=== PATIENT | female | born 1940 | race Asian ===

== ENCOUNTER 2018-07-27 22:10 | Inpatient (IN) | payer OTHER ==
[~2018-07-27] VITALS: Ht 154.9 cm; Wt 56.0 kg
[2018-07-27 22:16] VITALS: Ht 154.9 cm; Wt 56.0 kg
--- NOTE | 2018-07-27 22:28 | NUR ---
PT BIB [facility] FOR C/O DIZZINESS. PT WAS FOUND IN BEDROOM BY SON WITH SOME SLURRED SPEACH AND STATING SHE WAS FEELING DIZZY. PT DENIES ANY FALL. PT IS ABLE TO FOLLOW COMMANDS APPROPRIATELY. PT GRASPS ARE EVEN. PTS SMILE IS SYMETRIC. NO NEURO DEFICITS NOTED. PT HAS HX OF HTN, DM, AND AN ANGIOPLASTY THAT WAS DONE 8 YEARS AGO. PT WAS GIVEN ZOFRAN 4MG BY PARAMEDICS WHILE IN ROUTE. PTS BS WAS 100MG/dL. PT REPORTS HAVING A HEADACHE ONTOP OF HEAD. PT ALSO REPORTS A PAIN THAT IS ON HER UPPER LEFT BUTTOCK THAT RADIATES DOWN LEFT THIGH. PT IS LAYING IN ED GURNEY. PT IS A/O X4. PT RESPS ARE E/U. PT HAS SON AT BEDSIDE TO HELP WITH TRANSLATION. COMFORT MEASURES IN PLACE. MILD DISTRESS NOTED DUE TO HEADACHE.
--- NOTE | 2018-07-27 22:30 | NUR ---
MSE COMPLETED BY DR SKAGGS
--- NOTE | 2018-07-27 22:54 | NUR ---
PT IS BEING TAKEN TO CT SCAN VIA ED STEPHANIE BY TECH
[2018-07-27 22:59] LABS: BASOPHIL % 0.6 % (0-2); PLATELET COUNT 248 x10^3mcL (130-400)
--- NOTE | 2018-07-27 23:05 | NUR ---
PT RETURNED FROM CT WITH NO INCIDENCE
[2018-07-27 23:07] LABS: CARBON DIOXIDE 30.1 mmol/L (21-32); CHLORIDE SERUM 102 mmol/L (98-107); CREATININE SERUM 0.9 mg/dL (0.6-1.0); GLUCOSE SERUM 133 mg/dL (74-106); POTASSIUM SERUM 3.8 mmol/L (3.5-5.1); SODIUM SERUM 140 mmol/L (136-145)
--- NOTE | 2018-07-27 23:14 | NUR ---
PT LAYING IN ED STEPHANIE. PT IS UNABLE TO GIVE URINE SAMPLE AT THIS TIME. WILL CONTINUE TO ENCOURAGE
[2018-07-27 23:20] LABS: ALBUMIN 4.4 g/dL (3.4-5.0); ALKALINE PHOSPHATASE 94 U/L (46-116); ALT/SGPT 24 U/L (14-59); AST/SGOT 30 U/L (15-37); FREE T4 0.94 ng/dL (0.76-1.46)
[2018-07-27 23:22] LABS: TOTAL PROTEIN, SERUM 8.6 g/dL (6.4-8.2)
--- NOTE | 2018-07-27 23:38 | NUR ---
PT IS ABLE TO AMBULATE WITH STEADY GAIT TO THE RESTROOM TO GIVE URINE SAMPLE
--- NOTE | 2018-07-27 23:58 | NUR ---
DR SKAGGS AT BEDSIDE TO DISCUSS PLAN OF CARE WITH PT
[2018-07-28 00:11] LABS: UA SPECIFIC GRAVITY <=1.005 (1.005-1.035); microscopic required? YES; urine erythrocyte TRACE (NEGATIVE)
--- NOTE | 2018-07-28 00:30 | NUR ---
PT LAYING IN ED GURNEY WITH SON AT BEDSIDE. PT IS ASLEEP BUT EASILY AROUSABLE. PT RESPS ARE E/U. PT HAS COMFORT MEASURES IN PLACE. NO DISTRESS NOTED
--- NOTE | 2018-07-28 01:21 | NUR ---
GAVE PT REPORT TO LIBRA ANDINO TO RESUME PRIMARY CARE ONCE PT IS UP ON TELE FLOOR 217A
--- NOTE | 2018-07-28 01:46 | NUR ---
PT IS ABLE TO AMBULATE WITH STEADY GAIT TO RESTROOM WITH NO INCIDENCE
--- NOTE | 2018-07-28 02:01 | NUR ---
PT WHEELED OUT OF ED VIA ED GURNEY. PT ADMITTED TO TELE FLOOR 217A. PT WAS ESCORTED BY TITA ANDINO. NO INCIDENCE NOTED
[2018-07-28 02:09] LABS: CHOLESTEROL/HDL RATIO 4.1; MAGNESIUM 2.3 mg/dL (1.8-2.4); PHOSPHOROUS 4.1 mg/dL (2.5-4.9)
[2018-07-28 02:37] VITALS: BP 166/80
--- NOTE | 2018-07-28 02:53 | NUR ---
RECEIVED PT FROM ER VIA GURNEY ACCOMPANIED WITH NURSE AND PT'S SON, ALERT AND ORIENTED X 4 WITH CLEAR SPEECH AND CZECH SPEAKING ONLY, NO FACIAL DROOP NOTED, HAND SUBGRADE ROLLER OPERATOR ARE EQUAL, C/O OF DIZZINESS BUT DENIES HEADACHE, BREATHING EVEN AND UNLABORED, NO SOB, LUNG SOUNDS CLEAR, ON ROOM AIR WITH NO RESP DISTRESS NOTED, ON TELE#10 NSR WITH 1ST DEGREE AVB, DENIES CHEST PAIN, SL TO LH, PULSES PALPABLE, NO EDEMA NOTED, MILD GENERALIZED WEAKNESS, AMBULATORY WITH MINIMAL ASSIST, ABD SOFT AND FLAT WITH ACTIVE BS, NO BM AT THIS TIME, DENIES ABD PAIN, DENIES ANY PROBLEM WITH VOIDING, SON AT BEDSIDE, NO DISTRESS NOTED, WILL KEEP TO MONITOR.
[2018-07-28 05:35] VITALS: BP 118/60
--- NOTE | 2018-07-28 06:01 | NUR ---
PT ASLEEP BUT EASILY AROUSABLE, DENIES HEADACHE AT THIS TIME, C/O OF MILD DIZZINESS, ON TELE#10 NSR WITH 1ST DEGREE AVB, MORNING BLOOD SUGAR-103 MG/DL WITH NO RISS, NO DISTRESS NOTED, WILL KEEP TO MONITOR.
[2018-07-28 06:18] LABS: BASOPHIL % 0.6 % (0-2); PLATELET COUNT 234 x10^3mcL (130-400); RED CELL DISTRIBUTION WIDTH 13.2 % (11.5-14.5)
[2018-07-28 06:49] LABS: CALCIUM 8.5 mg/dL (8.5-10.1); CHLORIDE SERUM 105 mmol/L (98-107); CREATININE SERUM 0.8 mg/dL (0.6-1.0); GLUCOSE SERUM 107 mg/dL (74-106); PHOSPHOROUS 4.1 mg/dL (2.5-4.9); POTASSIUM SERUM 4.5 mmol/L (3.5-5.1); SODIUM SERUM 141 mmol/L (136-145)
--- NOTE | 2018-07-28 07:06 | NUR ---
BEDSIDE HANDOFF REPORT DONE WITH EVELYNRN, ALL QUESTIONS ANSWERED AND CONCERNS ADDRESSED.
--- NOTE | 2018-07-28 08:00 | NUR ---
RECEIVED PATIENT A/A/OX4; CLEAR KINYARWANDA SPEECH. TELE#10, SR W/ 1ST DEGREE AVB; HR = 69. DENIED CHEST PAIN.
[2018-07-28 10:06] VITALS: BP 120/66
[2018-07-28 13:33] VITALS: BP 114/61
[2018-07-28] MEDS ORDERED: MEMANTINE HCL E28 MG PO (14:58)
[2018-07-28] MEDS ORDERED: LOSARTAN POTASS25 M1 PO (14:59)
[2018-07-28] MEDS ORDERED: EXELON4.6 MG/21 PO (15:00)
[2018-07-28] MEDS ORDERED: TRADJENTA5 M1 PO (15:02)
[2018-07-28] MEDS ORDERED: ESTRACE0.5 MG PO (15:02)
[2018-07-28] MEDS ORDERED: BRILINTA90 M1 PO (15:03)
[2018-07-28 17:49] VITALS: BP 129/66
--- NOTE | 2018-07-28 18:56 | NUR ---
CONDITION STABLE. A/A/OX4. SPEECH CLEAR. IVHL'D TO L HAND. AMBULATED ON STEADY GAIT. TOLERATED DINNER. ENDORSED CARE TO [facility] NURSE.
--- NOTE | 2018-07-28 19:48 | NUR ---
SHIFT REASSESSMENT DONE.PATIENT ALERT AND ORIENTED.SPEAKING [place] ONLY,NEEDS ANTICIPATED.HEPLOCK L HAND INTACT.AMBULATORY,GEN WEAKNESS.TELE 10 SR.SKIN INTACT.SCD ORDERED.CALL LIGHT IN REACH.
[2018-07-28 21:05] VITALS: BP 105/63
--- NOTE | 2018-07-28 21:36 | NUR ---
BLOOD SUGAR 130.NO RISS.PATIENT NOT IN ANY DISTRESS.CALL LIGHT IN REACH.
--- NOTE | 2018-07-29 00:42 | NUR ---
CHECKED AT INTERVALS,SLEEPING COMFORTABLY.CALL LIGHT IN REACH.
--- NOTE | 2018-07-29 05:22 | NUR ---
BLOOD SUGAR THIS AM 105.HEPLOCK INTACT.NO COMPLAINT.WILL ENDORSE TO NEXT SHIFT.
[2018-07-29 05:43] VITALS: BP 98/57
[2018-07-29 06:14] LABS: BASOPHIL % 0.6 % (0-2); PLATELET COUNT 224 x10^3mcL (130-400); RED CELL DISTRIBUTION WIDTH 13.1 % (11.5-14.5)
[2018-07-29 06:24] LABS: CALCIUM 8.9 mg/dL (8.5-10.1); CARBON DIOXIDE 25.6 mmol/L (21-32); CHLORIDE SERUM 104 mmol/L (98-107); CREATININE SERUM 0.9 mg/dL (0.6-1.0); GLUCOSE SERUM 104 mg/dL (74-106); MAGNESIUM 1.9 mg/dL (1.8-2.4); PHOSPHOROUS 4.4 mg/dL (2.5-4.9); POTASSIUM SERUM 3.9 mmol/L (3.5-5.1); SODIUM SERUM 140 mmol/L (136-145)
--- NOTE | 2018-07-29 07:00 | NUR ---
RECEIVED REPORT FROM [facility] [employer] NURSE AT THIS TIME. PATIENT RESTING COMFORTABLY IN BED. NO DISTRESS OR DISCOMFORT NOTED. BREATHING EVEN AND UNLABORED. NO RESPIRATORY DISTRESS NOTED. IV PATENT AND INTACT. ALL QUESTIONS AND CONCERNS ADDRESSED. ALL NEEDS ATTENDED TO. WILL CONTINUE TO MONITOR
[2018-07-29 10:43] VITALS: BP 106/66
--- NOTE | 2018-07-29 10:53 | NUR ---
ALL MORNING MEDICATIONS ADMINISTERED. PATIENT TOLERATED MEDICATIONS WELL. NO ADVERSE EFFECTS NOTED. ALL NEEDS ATTENDED TO. WILL CONTINUE TO MONITOR
[2018-07-29 12:57] VITALS: BP 106/66
--- NOTE | 2018-07-29 13:05 | NUR ---
PATIENT SITTING UP IN BED EATING LUNCH AT THIS TIME. PATIENT TOLERATING DIET FAIRLY. NO DISTRESS OR DISCOMFORT NOTED. ALL NEEDS ATTENDED TO. WILL CONTINUE TO MONITOR
--- NOTE | 2018-07-29 13:32 | NUR ---
DR LUZ AT BEDSIDE TO REVIEW POC WITH PATIENT AND FAMILY MEMBER. ALL QUESTIONS AND CONCERNS ADDRESSED. ALL NEEDS ATTENDED TO. WILL CONTINUE TO MONITOR
[2018-07-29 14:25] VITALS: BP 95/53
--- NOTE | 2018-07-29 14:36 | NUR ---
PATIENT STABLE TO BE DISCHARGED TO HOME. DISCHARGE INSTRUCTIONS GIVEN WELL EDUCATION. INSTRUCTED PATIENT AND SON ABOUT FOLLOW UP APPOINMENT. JHOAN'S SON VERBALIZES UNDERSTANDING. IV REMOVED WITH CATH INTACT. ID BANDS REMOVED. TELE MONITOR 10 REMOVED AND RETURNED TO [facility]. ALL BELONGINGS WITH PATIENT. ESCORTED DOWN TO THE LOBBY
== END 2018-07-29 14:50 | disposition home or self-care (01) | DRG 73 ==
LOC: ED 22:10 → DU 07-28 00:46
PROVIDERS: Emergency Medicine; ADMIT Internal Medicine
DX: G90.8 Other disorders of autonomic nervous system (principal); N17.0 Acute kidney failure with tubular necrosis; E11.9 Type 2 diabetes mellitus without complications; I25.10 Atherosclerotic heart disease of native coronary artery without angina pectoris; Z66 Do not resuscitate; Z98.61 Coronary angioplasty status; Z68.23 Body mass index [BMI] 23.0-23.9, adult
CPT/HCPCS: 82962; 83880; 84439; 97110-GP; 97116-GP; 97530-GP; J7030; Q0092